=== PATIENT | female | born 1985 | race Two or more races ===

== ENCOUNTER 2020-01-15 18:22 | Emergency (ER) | payer BC ==
[~2020-01-15] VITALS: Ht 167.6 cm; Wt 62.0 kg
[2020-01-15] MEDS ORDERED: ONDANSETRON 4MG ODT PO ONE (19:45)
[2020-01-15] MEDS ORDERED: ACETAMINOPHEN 325MG TABLET PO PRN (19:45)
[2020-01-15 20:06] LABS: CLARITY URINE CLEAR (CLEAR); COLOR URINE YELLOW (YELLOW); KETONES URINE NEGATIVE (NEGATIVE); LEUKOCYTE ESTERASE URINE NEGATIVE (NEGATIVE); NITRITE URINE NEGATIVE (NEGATIVE); OCCULT BLOOD URINE NEGATIVE (NEGATIVE); PROTEIN URINE NEGATIVE (NEGATIVE); SPECIFIC GRAVITY URINE 1.009 (1.005-1.030); UROBILINOGEN URINE 0.2 E.U./dL (0.2-1.0)
[2020-01-15 20:09] LABS: BASOPHILS % 0.9 % (0.0-2.0); EOSINOPHILS % 1.4 % (0.0-5.0); HEMATOCRIT. 36.9 % (36.0-48.0); HEMOGLOBIN. 13.1 g/dL (12.0-16.0); LYMPHOCYTES % 32.3 % (20.0-50.0); MEAN CORPUSCULAR HEMOGLOBIN 31.1 pg (28.0-32.0); MEAN CORPUSCULAR VOLUME 87.7 fL (81.0-99.0); MEAN PLATELET VOLUME 7.8 fl (7.4-10.4); NEUTROPHILS % 57.4 % (40.0-76.0); PLATELET 296 x1000/uL (130-400); RED BLOOD CELL COUNT 4.21 mill/uL (4.2-5.4); RED CELL DISTRIBUTION WIDTH 12.3 % (11.6-14.6)
[2020-01-15 20:14] LABS: CHLORIDE 107 mEq/L (98-107)
[2020-01-15 20:38] LABS: B-HCG QUANTITATIVE 38911 mIU/mL (<3)
[2020-01-15 22:43] VITALS: BP 100/65
== END 2020-01-15 22:44 | disposition home or self-care (01) ==
LOC: EEVIPCON 18:31 → ER 18:31
DX: O26.891 Other specified pregnancy related conditions, first trimester (principal); O00.01 Abdominal pregnancy with intrauterine pregnancy; Z3A.01 Less than 8 weeks gestation of pregnancy
CPT/HCPCS: 36415; 76801; 76817; 80053; 81003; 81025; 84702; 85025; 86850; 86900; 86901; 99284; Q0162